=== PATIENT | female | born 1965 | race Caucasian/White ===

== ENCOUNTER 2019-07-03 15:57 | Outpatient (CLI) | payer BC, SELFPAY ==
--- NOTE | 2019-07-07 08:22 | ONC FU_ITS ---
Dr. Torres Patient Follow-Up Note Patient: Raine Rubio Unit #: [id number]: 1965 Dicatated By: Kwasi Torres M.D.Date of Visit:Jul 03, 2019 Onc Med Follow-up/Prog Note Chief Complaint: Breast cancer. History of Present Illness: This is a 54 year-old woman with flor 1 invasive ductal carcinoma of the left breast, stage IA (T1c, N0, M0), ER/TN positive and HER-2/gregorio negative. The tumor was low risk by Oncotype DX, recurrence score 2. She had been undergoing close surveillance for suspicious findings in the left breast on mammogram, first noted in July 2014. Biopsy at that time showed benign pathology. follow-up imaging in July 2015 was felt to be suspicious, but the abnormality was not reproducible at the scheduled ultrasound-guided biopsy in August 2015. Repeat diagnostic mammogram and ultrasound on 02/25/2016 showed a focal asymmetry in the 9:00 position of the left breast, 7 cm from the nipple, measuring 9 mm in size. Needle core biopsy on 03/06/2016 showed invasive ductal carcinoma, Heike grade 2, with 10% intermediate grade ductal carcinoma in situ, cribriform pattern. The breast prognostic profile showed ER positive at 98% and TN positive at 98%. It was negative for overexpression of HER-2/gregorio, 1+ by IHC. The Ki-67 was borderline at 17%. Further evaluation with bilateral breast MRI revealed a second suspicious lesion in the left breast as well as several abnormalities in the right breast. As such, the decision was made to proceed with bilateral mastectomy. On 04/14/2016 she underwent left modified radical mastectomy with sentinel lymph node biopsy and right total mastectomy. Pathology on the left breast showed invasive ductal carcinoma, grade 1, measuring 1.8 cm in greatest dimension. Also noted was a separate lesion of ductal carcinoma in situ, nuclear grade 3, with comedo type necrosis, measuring 1.2 cm in greatest dimension. The margins of resection were negative for dysplasia and tumor. There was no lymphovascular invasion identified. One sentinel axillary lymph node was negative for carcinoma. The right breast showed ductal carcinoma in situ, nuclear grade 2, with cribriform features and comedo type necrosis, measuring 3.3 cm in greatest dimension. There was no invasive carcinoma identified. The margins of resection were negative for tumor. She had further evaluation with Oncotype DX, which showed a recurrence score of 2, low risk category, corresponding to a 10 year risk of distant recurrence of 4% following adjuvant hormonal therapy. I had seen her initially on 05/20/2016. Given her low recurrence score by Oncotype DX, adjuvant chemotherapy was not recommended. I had discussed options for adjuvant hormonal therapy. She had previously undergone hysterectomy and unilateral oophorectomy for benign disease in 2010. She did report having hot flashes for several years, and those had gradually resolved. Her subsequent evaluation included an FSH level of 41.1 mIU/mL, LH 23.8 mIU/mL, and estradiol 22.2 pg/mL, consistent with menopause. Her baseline DEXA scan showed normal bone density with T score of 1.6 in the lumbar spine, 1.9 in the left hip, and 1.9 in the right hip. She began adjuvant hormonal therapy with anastrozole 1 mg daily on 05/25/2016. Her other medical illnesses include hyperlipidemia, type II diabetes, and GERD. She has hypothyroidism following previous radioactive iodine ablation for hyperthyroidism. She has a history of smoking 1/2 pack of cigarettes daily for 15 years. She quit smoking in 2006. NTERIM HISTORY: She had initially tolerated the anastrozole well. However, as of May 2017 it was stopped due to worsening musculoskeletal pain. Her symptoms subsequently improved, and she then began further hormonal therapy with letrozole 2.5 mg daily on 11/26/2017. She stopped treatment as of 12/14/2017 due to recurrence of musculoskeletal pain, the the most significant of which was in the right hip area. X-ray of the right hip and pelvis at that time showed no acute or healing hip or pelvic fractures. There were no destructive lesions identified. As of her followup visit in January 2018 she began further adjuvant hormonal therapy with exemestane 25 mg daily. In the meantime, she also began monthly B12 injections. At her follow-up visit in December 2018, she had developed significant worsening of her musculoskeletal pain, and her exemestane was put on hold. By the following month she was feeling better, and she opted to restart the exemestane as opposed to changing her treatment. She is seen for a follow-up visit. She has not been feeling good. In March she had started Victoza for her diabetes and she has been having significant side effects with it, mainly abdominal pain and severe nausea. As result of that, her energy has been terrible. Recently she has had very little activity. Appetite has been very poor, but her weight has remained stable. She was having fever, that has resolved. She has not had hot flashes or night sweating. She did stop the medication 4 days ago, and since then she has started feeling a little better. She still has her normal sinus drainage and cough. She does not complain of shortness of breath or chest pain. Bowel and bladder function have been okay. She has been having some back pain and she also has had pain in her posterior hip area. She was having headaches and she also has had dizziness. She has no focal neurologic symptoms. Medications: ALPRAZolam 0.5 (0.25 mg) Tablet Oral at bedtime PRN, Glimepiride 1 (2 mg) Tablet Oral daily, MetFORMIN HCl ER 2 (500 mg) Tablet SR 24 HR Oral b.i.d., PriLOSEC OTC 1 (20 mg) Tablet, enteric coated Oral daily PRN, Simvastatin 1 Tablet (of 20 mg) Oral daily, Symbicort 1 (80-4.5 mcg/act) Aerosol Inhalation b.i.d. PRN, Synthroid 1 (112 mcg) Tablet Oral daily, Vitamin B12 1 Injectable Oral Allergies: Hydrocodone-Acetaminophen Review of Systems: Constitutional - She says her energy is terrible. She has very little activity. Her appetite has not been good, but her weight is stable. She was having fever, that has resolved. She is not have hot flashes or night sweating. ECOG score is 2, ENMT - She has allergy related sinus drainage. No mouth sores. No sore throat or difficulty swallowing, Hematologic/Lymphatic - No abnormal bruising or bleeding, Respiratory - No shortness of breath. She has some cough with the sinus drainage. No pleuritic pain or hemoptysis, Cardiovascular - No angina pain. No palpitations, Gastrointestinal - She has been having abdominal pain and severe nausea, but it is getting better. She has occasional acid reflux. No diarrhea or constipation. No blood in the stool or black stools, Genitourinary (F) - No dysuria or hematuria. No urinary frequency. No urgency or incontinence, Musculoskeletal - She has been having back pain, Integumentary - No skin complications, Neurologic - She was having headaches and she has had dizziness. No numbness/paresthesias or other focal neurologic symptoms, Psychiatric - She has some anxiety. No depression. No insomnia. Vital Signs: Performed on Jul 03, 2019 16:06 Height - 66.00 in Weight - 227.2 lbs (LOW) BSA - 2.11 sq.m BMI - 36.67 (HIGH) Temperature - 98.3 F (LOW) Pulse - 90 /min Respiration - 16 /min BP - 125/79 mm(hg) O2 Sat - 98 % Pain - 3 Physical Examination: Constitutional - She still looks good generally, Eyes - Sclerae nonicteric. Conjunctivae clear, ENMT - No lesions noted in the oral cavity, Hematologic/Lymphatic - No cervical, clavicular, or axillary adenopathy, Respiratory - Lungs are clear with good air movement bilaterally, Cardiovascular - Heart rhythm is regular. There is a II/ systolic murmur. There is no gallop or rub noted, Abdomen - Soft. She has mild abdominal tenderness. Liver and spleen are not enlarged. There is no abdominal mass or ascites noted and there is no inguinal adenopathy, Extremities - No edema, Neurologic - No focal neurologic deficits noted. Lab/Imaging: Her laboratory studies from an ER visit on 06/22/2019 included CBC showing hemoglobin 16.6 g, white blood cell count 16,000, and platelet count 308,000. Comprehensive metabolic profile was unremarkable. Impression: 1. Patient with flor 1 invasive ductal carcinoma of the left breast, stage IA (T1c, N0, M0), ER/TN positive and HER-2/gregorio negative. The tumor was low risk by Oncotype DX, recurrence score 2. 2. She also had bilateral ductal carcinoma in situ, grade 3 on the left and grade 2 on the right. 3. She underwent left modified radical mastectomy with axillary sentinel lymph node biopsy and right total mastectomy on 04/14/2016. 4. Her laboratory studies were consistent with menopausal status. Her other medical illnesses include: 5. Hyperlipidemia. 6. Type II diabetes. 7. She has history of hyperthyroidism for which she underwent treatment with radioactive iodine ablation. 8. She is being followed for thyroid nodules. 9. She has persistent cough. This may be due to asthma. 10. She has mild psoriasis. 11. She has history of alopecia. Adjuvant hormonal therapy with anastrozole 1 mg daily began on 05/25/2016. Initiall she had been tolerating it well. She was noted to have a mildly elevated alkaline phosphatase level, presumed to be related to her underlying diabetes. However, as of May 2017 the anastrozole was put on hold due to worsening musculoskeletal pain. Her symptoms subsequently improved, and she then began further hormonal therapy with letrozole 2.5 mg daily on 11/26/2017. It was stopped as of 12/14/2017, again because of musculoskeletal pain, mainly in the right hip. X-rays of the right hip and pelvis showed no acute findings. During followup she had complete resolution of the musculoskeletal pain and other symptoms. In January 2018 she began further adjuvant hormonal therapy with exemestane 25 mg daily. Initially she had tolerated without adverse effects. However, as of her follow-up visit in December the exemestane was put on hold due to significant worsening of her joint pain. The symptoms had subsequently improved, and in January we opted to restart the medication as opposed to changing her treatment. Initially she was tolerating it pretty well. In March she started Victoza for her diabetes. It apparently has been effective and controlling her blood sugars, but she has been having significant side effects, mainly abdominal pain and severe nausea. She stopped taking it 4 days ago, and since then she has started feeling a little better. However, in addition to the GI symptoms, she also has been having more bone pain again, and at least some component of her symptoms may be related to the exemestane. Plan: I am going to have her put the exemestane on hold again. She will be scheduled for a follow-up visit in 1 month. If she is feeling a lot better, I will probably just have her try taking it again at least one more time. Ultimately, if she is not able to tolerate it, her treatment can be transitioned to tamoxifen. Signed By: Kwasi Torres M.D. <<Signature on File>>
== END 2019-07-03 15:58 | disposition home or self-care (01) ==
PROVIDERS: Family Provider Family Medicine; PCP Internal Medicine Medical Oncology; Visit Provider Internal Medicine Medical Oncology
DX: C50.812 Malignant neoplasm of overlapping sites of left female breast (principal); Z90.13 Acquired absence of bilateral breasts and nipples; Z17.0 Estrogen receptor positive status [ER+]; E78.5 Hyperlipidemia, unspecified; E11.9 Type 2 diabetes mellitus without complications; K21.9 Gastro-esophageal reflux disease without esophagitis; E89.0 Postprocedural hypothyroidism; Y84.2 Radiological procedure and radiotherapy as the cause of abnormal reaction of the patient, or of later complication, without mention of misadventure at the time of the procedure; Y78.1 Therapeutic (nonsurgical) and rehabilitative radiological devices associated with adverse incidents; L40.9 Psoriasis, unspecified; Z78.0 Asymptomatic menopausal state; Z79.811 Long term (current) use of aromatase inhibitors; Z79.84 Long term (current) use of oral hypoglycemic drugs; Z87.891 Personal history of nicotine dependence
CPT/HCPCS: 99214

== ENCOUNTER 2020-01-23 11:37 | Outpatient (CLI) | payer BC, SELFPAY ==
[2020-01-23 12:27] LABS: Basophils # 0.1 10^3/uL (0.0-0.1); Basophils % 0.7 %; Eosinophils # 0.4 10^3/uL (0.0-0.8); Eosinophils % 6.1 %; Hematocrit 43.9 % (37.0-47.0); Hemoglobin 14.6 g/dL (11.5-15.3); Lymphocytes # 3.3 10^3/uL (0.8-4.8); Lymphocytes % 47.8 %; Mean Corpuscular HGB Conc 33.3 g/dL (30.0-36.0); Mean Corpuscular Hemoglobin 29.8 pg (28.0-34.0); Mean Corpuscular Volume 89.6 fL (81-99); Monocytes # 0.4 10^3/uL (0.2-0.9); Monocytes % 5.6 %; Neutrophils # 2.74 10^3/uL (1.8-7.7); Neutrophils % 39.5 %; Nucleated Red Blood Cells % 0 %; Platelet Count 252 10^3/cmm (130-400); Red Cell Distribution Width 11.8 % (12.1-15.1); White Blood Count 6.9 10^3/uL (4.0-10.0)
[2020-01-23 12:48] LABS: Alanine Aminotransferase 30 U/L (0-33); Albumin Level 4.2 g/dL (3.5-5.2); Alkaline Phosphatase 91 IU/L (35-105); Aspartate Amino Transferase 26 U/L (0-32); Blood Urea Nitrogen 7 mg/dL (6-20); Calcium 8.7 mg/dL (8.5-10.5); Carbon Dioxide 26 mmol/L (22-29); Chloride 100 mmol/L (98-107); Globulin 2.8 g/dL (1.3-4.6); Glomerular Filtration Rate 87.5 mL/min (90-130); Glucose 194 mg/dL (65-115); Osmolality Calculated 281 mOsm/kg (285-295); Sodium 135 mmol/L (136-145); Total Bilirubin 0.6 mg/dL (0.15-1.2)
--- NOTE | 2020-01-27 12:29 | ONC FU_ITS ---
Dr. Torres Patient Follow-Up Note Patient: Raine Rubio Unit #: [id number]: 1965 Dicatated By: Kwasi Torres M.D.Date of Visit:Jan 23, 2020 Onc Med Follow-up/Prog Note Chief Complaint: Breast cancer. History of Present Illness: This is a 54 year-old woman with flor 1 invasive ductal carcinoma of the left breast, stage IA (T1c, N0, M0), ER/RI positive and HER-2/gregorio negative. The tumor was low risk by Oncotype DX, recurrence score 2. She had been undergoing close surveillance for suspicious findings in the left breast on mammogram, first noted in July 2014. Biopsy at that time showed benign pathology. follow-up imaging in July 2015 was felt to be suspicious, but the abnormality was not reproducible at the scheduled ultrasound-guided biopsy in August 2015. Repeat diagnostic mammogram and ultrasound on 02/25/2016 showed a focal asymmetry in the 9:00 position of the left breast, 7 cm from the nipple, measuring 9 mm in size. Needle core biopsy on 03/06/2016 showed invasive ductal carcinoma, Heike grade 2, with 10% intermediate grade ductal carcinoma in situ, cribriform pattern. The breast prognostic profile showed ER positive at 98% and RI positive at 98%. It was negative for overexpression of HER-2/gregorio, 1+ by IHC. The Ki-67 was borderline at 17%. Further evaluation with bilateral breast MRI revealed a second suspicious lesion in the left breast as well as several abnormalities in the right breast. As such, the decision was made to proceed with bilateral mastectomy. On 04/14/2016 she underwent left modified radical mastectomy with sentinel lymph node biopsy and right total mastectomy. Pathology on the left breast showed invasive ductal carcinoma, grade 1, measuring 1.8 cm in greatest dimension. Also noted was a separate lesion of ductal carcinoma in situ, nuclear grade 3, with comedo type necrosis, measuring 1.2 cm in greatest dimension. The margins of resection were negative for dysplasia and tumor. There was no lymphovascular invasion identified. One sentinel axillary lymph node was negative for carcinoma. The right breast showed ductal carcinoma in situ, nuclear grade 2, with cribriform features and comedo type necrosis, measuring 3.3 cm in greatest dimension. There was no invasive carcinoma identified. The margins of resection were negative for tumor. She had further evaluation with Oncotype DX, which showed a recurrence score of 2, low risk category, corresponding to a 10 year risk of distant recurrence of 4% following adjuvant hormonal therapy. I had seen her initially on 05/20/2016. Given her low recurrence score by Oncotype DX, adjuvant chemotherapy was not recommended. I had discussed options for adjuvant hormonal therapy. She had previously undergone hysterectomy and unilateral oophorectomy for benign disease in 2010. She did report having hot flashes for several years, and those had gradually resolved. Her subsequent evaluation included an FSH level of 41.1 mIU/mL, LH 23.8 mIU/mL, and estradiol 22.2 pg/mL, consistent with menopause. Her baseline DEXA scan showed normal bone density with T score of 1.6 in the lumbar spine, 1.9 in the left hip, and 1.9 in the right hip. She began adjuvant hormonal therapy with anastrozole 1 mg daily on 05/25/2016. Her other medical illnesses include hyperlipidemia, type II diabetes, and GERD. She has hypothyroidism following previous radioactive iodine ablation for hyperthyroidism. She has a history of smoking 1/2 pack of cigarettes daily for 15 years. She quit smoking in 2006. NTERIM HISTORY: She had initially tolerated the anastrozole well. However, as of May 2017 it was stopped due to worsening musculoskeletal pain. Her symptoms subsequently improved, and she then began further hormonal therapy with letrozole 2.5 mg daily on 11/26/2017. She stopped treatment as of 12/14/2017 due to recurrence of musculoskeletal pain, the the most significant of which was in the right hip area. X-ray of the right hip and pelvis at that time showed no acute or healing hip or pelvic fractures. There were no destructive lesions identified. As of her followup visit in January 2018 she began further adjuvant hormonal therapy with exemestane 25 mg daily. In the meantime, she also began monthly B12 injections. At her follow-up visit in December 2018, she had developed significant worsening of her musculoskeletal pain, and her exemestane was put on hold. By the following month she was feeling better, and she opted to restart the exemestane as opposed to changing her treatment. As of June 2019 the exemestane was again put on hold, she was having a variety of new complaints. However, it was restarted by the next month. She is seen for a follow-up visit. Thus far she has been able to tolerate the exemestane with acceptable side effects. Recently she has been having pain in her right arm, from the wrist to the elbow, and she also has some swelling with it. She has not been having any other significant joint or bone pain. Her energy is quite variable. At times she bottoms out. She is doing light work. Her ECOG score is 1. Her appetite is also variable. Her weight is up a couple of pounds. She has not had fever. She has normal hot flashes. She has a little bit of shortness of breath. Overall her breathing is pretty good. She does complain of constant cough. She has not been having chest pain. She had nausea says vomiting and diarrhea last week, attributable to a bug . Bowels have otherwise been okay, though she sometimes has urgency with defecation. She has no complaints. She has no focal neurologic symptoms. She has been having a lot of stress/anxiety, particularly in regards to concerns about going back to work in the midst of the coronavirus pandemic. Medications: ALPRAZolam 0.5 (0.25 mg) Tablet Oral at bedtime PRN, Glimepiride 1 (2 mg) Tablet Oral daily, MetFORMIN HCl ER 2 (500 mg) Tablet SR 24 HR Oral b.i.d., PriLOSEC OTC 1 (20 mg) Tablet, enteric coated Oral daily PRN, Simvastatin 1 Tablet (of 20 mg) Oral daily, Symbicort 1 (80-4.5 mcg/act) Aerosol Inhalation b.i.d. PRN, Synthroid 1 (137 mcg) Tablet Oral daily, Trulicity 1 (0.75 mg/0.5mL) Subcutaneous q 7 days, Vitamin B12 1 Injectable Oral Allergies: Hydrocodone-Acetaminophen Review of Systems: Constitutional - Her energy varies. Some days she bottoms out . Appetite also is variable. Weight is up a couple of pounds. She has not had fever. She has normal hot flashes. ECOG score is 1, ENMT - She has sinus drainage. No mouth sores. No sore throat or difficulty swallowing, Hematologic/Lymphatic - No abnormal bruising or bleeding, Respiratory - She has some shortness of breath, but her breathing is pretty good. She has a constant cough. No pleuritic pain or hemoptysis, Cardiovascular - No angina pain. No palpitations, Gastrointestinal - Last week she had nausea/vomiting and diarrhea, presumed to be a bug . Her bowels are otherwise okay, though she sometimes has urgency with defecation. No blood in the stool or black stools, Genitourinary (F) - No dysuria or hematuria. No urinary frequency. No urgency or incontinence, Musculoskeletal - She has been having pain in her right arm, from the wrist and up to the elbow, and she has some associated swelling in the arm. She has no other joint or bone pain, Integumentary - No skin rash, Neurologic - No headache. She does have some dizziness. No numbness or tingling. No other focal neurologic symptoms, Psychiatric - She has anxiety and depression. She has difficulty sleeping. Vital Signs: Performed on Jan 23, 2020 12:58 Height - 66.00 in Weight - 230.8 lbs (HIGH) BSA - 2.13 sq.m BMI - 37.25 (HIGH) Temperature - 97.3 F (LOW) Pulse - 103 /min (HIGH) Respiration - 18 /min BP - 123/81 mm(hg) O2 Sat - 100 % Pain - 4 Physical Examination: Constitutional - She looks good generally, Eyes - Sclerae nonicteric. Conjunctivae clear, ENMT - No lesions noted in the oral cavity, Hematologic/Lymphatic - No cervical or clavicular adenopathy, Respiratory - Lungs are clear with good air movement bilaterally, Cardiovascular - Heart rhythm is regular. There is a I/ systolic murmur. There is no gallop or rub noted, Breasts - There are no chest wall lesions noted. There is no axillary adenopathy, Abdomen - Soft. Liver and spleen are not enlarged. There is no abdominal mass or ascites noted and there is no inguinal adenopathy, Extremities - No lower extremity edema. There is focal tenderness in the area of the right elbow, and there is slight swelling in the right forearm, Neurologic - No focal neurologic deficits noted. Lab/Imaging: Test performed on Jan 23, 2020 11:57 Sodium 135 mmol/L Potassium 4.0 mmol/L Chloride 100 mmol/L CO2 26 mmol/L Anion Gap 13.0 BUN 7 mg/dL Creatinine 0.7 mg/dL Cr Clearance (Est) 153.61 mL/min eGFR 87.5 mL/min Glucose 194 mg/dL Calcium 8.7 mg/dL Protein, Total 7.0 g/dL Albumin 4.2 g/dL Globulin 2.8 g/dL Bilirubin, Total 0.6 mg/dL ALT (SGPT) 30 U/L AST (SGOT) 26 U/L Alkaline Phosphatase 91 IU/L WBC 6.9 10 3/uL RBC 4.90 10 6/uL HGB 14.6 g/dL HCT 43.9 % MCV 89.6 fL MCH 29.8 pg MCHC 33.3 g/dL RDW 11.8 % Platelet Count 252 10 3/cmm MPV 11.0 fL Neutrophils 2.74 10 3/uL Lymphocytes 3.3 10 3/uL Monocytes 0.4 10 3/uL Eosinophils 0.4 10 3/uL Basophils 0.1 10 3/uL Neutrophil % 39.5 % Lymphocyte % 47.8 % Monocyte % 5.6 % Eosinophil % 6.1 % Basophils % 0.7 % NRBC % 0 % Impression: 1. Patient with flor 1 invasive ductal carcinoma of the left breast, stage IA (T1c, N0, M0), ER/RI positive and HER-2/gregorio negative. The tumor was low risk by Oncotype DX, recurrence score 2. 2. She also had bilateral ductal carcinoma in situ, grade 3 on the left and grade 2 on the right. 3. She underwent left modified radical mastectomy with axillary sentinel lymph node biopsy and right total mastectomy on 04/14/2016. 4. Her laboratory studies were consistent with menopausal status. Her other medical illnesses include: 5. Hyperlipidemia. 6. Type II diabetes. 7. She has history of hyperthyroidism for which she underwent treatment with radioactive iodine ablation. 8. She is being followed for thyroid nodules. 9. She has persistent cough. This may be due to asthma. 10. She has mild psoriasis. 11. She has history of alopecia. Adjuvant hormonal therapy with anastrozole 1 mg daily began on 05/25/2016. Initiall she had been tolerating it well. She was noted to have a mildly elevated alkaline phosphatase level, presumed to be related to her underlying diabetes. However, as of May 2017 the anastrozole was put on hold due to worsening musculoskeletal pain. Her symptoms subsequently improved, and she then began further hormonal therapy with letrozole 2.5 mg daily on 11/26/2017. It was stopped as of 12/14/2017, again because of musculoskeletal pain, mainly in the right hip. X-rays of the right hip and pelvis showed no acute findings. During followup she had complete resolution of the musculoskeletal pain and other symptoms. In January 2018 she began further adjuvant hormonal therapy with exemestane 25 mg daily. Initially she had tolerated without adverse effects. However, as of her follow-up visit in December the exemestane was put on hold due to significant worsening of her joint pain. The symptoms had subsequently improved, and in January she opted to restart the medication as opposed to changing her treatment. As of June 2019 the exemestane was again put on hold, but just temporarily. She has since then been able to continue it with acceptable toxicity. She does have episodes of severe fatigue and recently she has developed significant pain in her right arm, from the wrist to the elbow. The exact cause is uncertain. However, it would be an unlikely site for metastatic involvement. Plan: She continues adjuvant hormonal therapy with exemestane 25 mg daily. She will be given a prescription for venlafaxine 75 mg daily for anxiety and for hot flashes. I also will have her try meloxicam 15 mg daily for 14 days. If her arm pain improves she can then just use Voltaren gel topically as needed. She is to let me know if it is not getting better. Otherwise I will just see her again in 6 months. Signed By: wKasi Torres M.D. <<Signature on File>>
== END 2020-01-23 11:38 | disposition home or self-care (01) ==
LOC: ONCMED 11:37
PROVIDERS: Visit Provider Internal Medicine Medical Oncology
DX: C50.812 Malignant neoplasm of overlapping sites of left female breast (principal); F41.9 Anxiety disorder, unspecified; M79.631 Pain in right forearm; Z17.0 Estrogen receptor positive status [ER+]; Z86.000 Personal history of in-situ neoplasm of breast; E78.5 Hyperlipidemia, unspecified; E11.9 Type 2 diabetes mellitus without complications; E04.2 Nontoxic multinodular goiter; R05 Cough; L40.9 Psoriasis, unspecified; L65.9 Nonscarring hair loss, unspecified; Z90.13 Acquired absence of bilateral breasts and nipples; Z79.811 Long term (current) use of aromatase inhibitors; Z79.899 Other long term (current) drug therapy
CPT/HCPCS: 36415; 80053; 85025; 99214

== ENCOUNTER 2020-07-25 13:21 | Outpatient (CLI) | payer BC, SELFPAY ==
--- NOTE | 2020-07-27 11:10 | ONC FU_ITS ---
Dr. Torres Patient Follow-Up Note Patient: Raine Rubio Unit #: [id number]: 1965 Dicatated By: Kwasi Torres M.D.Date of Visit:Jul 25, 2020 Onc Med Follow-up/Prog Note Chief Complaint: Breast cancer. History of Present Illness: This is a 55 year-old woman with jamar 1 invasive ductal carcinoma of the left breast, stage IA (T1c, N0, M0), ER/CO positive and HER-2/gregorio negative. The tumor was low risk by Oncotype DX, recurrence score 2. She had been undergoing close surveillance for suspicious findings in the left breast on mammogram, first noted in July 2014. Biopsy at that time showed benign pathology. Follow-up imaging in July 2015 was felt to be suspicious, but the abnormality was not reproducible at the scheduled ultrasound-guided biopsy in August 2015. Repeat diagnostic mammogram and ultrasound on 02/25/2016 showed a focal asymmetry in the 9:00 position of the left breast, 7 cm from the nipple, measuring 9 mm in size. Needle core biopsy on 03/06/2016 showed invasive ductal carcinoma, Heike grade 2, with 10% intermediate grade ductal carcinoma in situ, cribriform pattern. The breast prognostic profile showed ER positive at 98% and CO positive at 98%. It was negative for overexpression of HER-2/gregorio, 1+ by IHC. The Ki-67 was borderline at 17%. Further evaluation with bilateral breast MRI revealed a second suspicious lesion in the left breast as well as several abnormalities in the right breast. As such, the decision was made to proceed with bilateral mastectomy. On 04/14/2016 she underwent left total mastectomy with sentinel lymph node biopsy and right total mastectomy. Pathology on the left breast showed invasive ductal carcinoma, grade 1, measuring 1.8 cm in greatest dimension. Also noted was a separate lesion of ductal carcinoma in situ, nuclear grade 3, with comedo type necrosis, measuring 1.2 cm in greatest dimension. The margins of resection were negative for dysplasia and tumor. There was no lymphovascular invasion identified. One axillary sentinel lymph node was negative for carcinoma. The right breast showed ductal carcinoma in situ, nuclear grade 2, with cribriform features and comedo type necrosis, measuring 3.3 cm in greatest dimension. There was no invasive carcinoma identified. The margins of resection were negative for tumor. She had further evaluation with Oncotype DX, which showed a recurrence score of 2, low risk category, corresponding to a 10 year risk of distant recurrence of 4% following adjuvant hormonal therapy. I had seen her initially on 05/20/2016. Given her low recurrence score by Oncotype DX, adjuvant chemotherapy was not recommended. I had discussed options for adjuvant hormonal therapy. She had previously undergone hysterectomy and unilateral oophorectomy for benign disease in 2010. She did report having hot flashes for several years, and those had gradually resolved. Her subsequent evaluation included an FSH level of 41.1 mIU/mL, LH 23.8 mIU/mL, and estradiol 22.2 pg/mL, consistent with menopause. Her baseline DEXA scan showed normal bone density with T score of 1.6 in the lumbar spine, 1.9 in the left hip, and 1.9 in the right hip. She began adjuvant hormonal therapy with anastrozole 1 mg daily on 05/25/2016. She had initially tolerated the anastrozole well. However, as of May 2017 it was stopped due to worsening musculoskeletal pain. Her symptoms subsequently improved, and she then began further hormonal therapy with letrozole 2.5 mg daily on 11/26/2017. She stopped treatment as of 12/14/2017 due to recurrence of musculoskeletal pain, the the most significant of which was in the right hip area. X-ray of the right hip and pelvis at that time showed no acute or healing hip or pelvic fractures. There were no destructive lesions identified. As of her followup visit in January 2018 she began further adjuvant hormonal therapy with exemestane 25 mg daily. In the meantime, she also began monthly B12 injections. At her follow-up visit in December 2018, she had developed significant worsening of her musculoskeletal pain, and her exemestane was put on hold. By the following month she was feeling better, and she opted to restart the exemestane as opposed to changing her treatment. As of June 2019 the exemestane was again put on hold, she was having a variety of new complaints. However, it was restarted by the next month, and during subsequent follow-up she was able to tolerate the exemestane with acceptable toxicity. Her other medical illnesses include hyperlipidemia, type II diabetes, and GERD. She has hypothyroidism following previous radioactive iodine ablation for hyperthyroidism. She has a history of smoking 1/2 pack of cigarettes daily for 15 years. She quit smoking in 2006. INTERIM HISTORY: She is seen for a follow-up visit. She has been feeling good generally. Her energy has improved with her B12 injections administered every 2 weeks. She has normal activity. ECOG score is 0. Appetite is somewhat variable. Her weight is down a few pounds. She does not have fever or night sweats. She does have some hot flashes. She has sinus drainage and sometimes sore throat. She has chronic cough. She does not complain of shortness of breath or chest pain. She has acid reflux, but it is adequately managed with Tums. She sometimes has loose stools and her bowel movements are sometimes urgent. Bladder function is pretty good, though she does have some mild stress incontinence. She currently is not having any significant joint or bone pain. She occasionally wakes up with a bad headache. She has no focal neurologic symptoms. Her anxiety/depression has improved significantly with Wellbutrin. Medications: ALPRAZolam 0.5 (0.25 mg) Tablet Oral at bedtime PRN, Glimepiride 1 (2 mg) Tablet Oral daily, MetFORMIN HCl ER 2 (500 mg) Tablet SR 24 HR Oral b.i.d., PriLOSEC OTC 1 (20 mg) Tablet, enteric coated Oral daily PRN, Simvastatin 1 Tablet (of 20 mg) Oral daily, Symbicort 1 (80-4.5 mcg/act) Aerosol Inhalation b.i.d. PRN, Synthroid 1 (137 mcg) Tablet Oral daily, Trulicity 1 (0.75 mg/0.5mL) Subcutaneous q 7 days, Vitamin B12 1 Injectable Oral Allergies: Hydrocodone-Acetaminophen Vital Signs: Performed on Jul 25, 2020 13:36 Height - 66.00 in Weight - 226.2 lbs (LOW) BSA - 2.11 sq.m BMI - 36.51 (HIGH) Temperature - 99 F (HIGH) Pulse - 98 /min Respiration - 16 /min BP - 129/79 mm(hg) O2 Sat - 99 % Pain - 0 Physical Examination: Constitutional - She looks good generally, Eyes - Sclerae nonicteric. Conjunctivae clear, ENMT - No lesions noted in the oral cavity, Hematologic/Lymphatic - No cervical, clavicular, or axillary adenopathy, Respiratory - Lungs are clear with good air movement bilaterally, Cardiovascular - Heart rhythm is regular. There is no murmur, gallop, or rub noted, Abdomen - Soft. Liver and spleen are not enlarged. There is no abdominal mass or ascites noted and there is no inguinal adenopathy, Extremities - No edema, Neurologic - No focal neurologic deficits noted. Problem List: 1. Jamar 1 invasive ductal carcinoma of the left breast, stage IA (T1c, N0, M0), ER/CO positive and HER-2/gregorio negative. The tumor was low risk by Oncotype DX, recurrence score 2. She also had bilateral ductal carcinoma in situ, grade 3 on the left and grade 2 on the right. 2. Hyperlipidemia. 3. Type II diabetes. 4. She has history of hyperthyroidism for which she underwent treatment with radioactive iodine ablation. 5. She has been followed for thyroid nodules. 6. She has mild psoriasis. 7. She has history of alopecia. 8. B12 deficiency. 9. Anxiety/depression. Problems Addressed with this Encounter and Plan: Jamar 1 invasive ductal carcinoma of the left breast, stage IA (T1c, N0, M0), ER/CO positive and HER-2/gregorio negative. The tumor was low risk by Oncotype DX, recurrence score 2. She also had bilateral ductal carcinoma in situ, grade 3 on the left and grade 2 on the right. She underwent left total mastectomy with axillary sentinel lymph node biopsy and right total mastectomy on 04/14/2016. With low risk Oncotype, adjuvant chemotherapy was not recommended. She began adjuvant hormonal therapy with anastrozole 1 mg daily in May 2016. Her laboratory studies were consistent with menopausal status. As of May 2017 the anastrozole was put on hold due to worsening musculoskeletal pain. Her symptoms subsequently improved, and she then began further hormonal therapy with letrozole 2.5 mg daily on 11/26/2017. It was stopped within a few weeks because of musculoskeletal pain. In January 2018 she began further adjuvant hormonal therapy with exemestane 25 mg daily. During subsequent follow-up the exemestane was put on hold a couple of different times due to increased joint pain, but just temporarily. Overall, she has been able to continue it with acceptable toxicity. At this point she appears to be doing well clinically. She currently is not having any significant joint or bone pain, and her anxiety/depression has improved significantly with bupropion. She continues adjuvant hormonal therapy with exemestane 25 mg daily. Her other medications remain the same. I will plan to see her again in May, or sooner as needed. Signed By: Kwasi Torres M.D. <<Signature on File>>
== END 2020-07-25 13:22 | disposition home or self-care (01) ==
LOC: ONCMED 13:23
PROVIDERS: Visit Provider Internal Medicine Medical Oncology
DX: C50.812 Malignant neoplasm of overlapping sites of left female breast (principal); Z17.0 Estrogen receptor positive status [ER+]; E78.5 Hyperlipidemia, unspecified; E11.9 Type 2 diabetes mellitus without complications; E03.9 Hypothyroidism, unspecified; E04.1 Nontoxic single thyroid nodule; L40.9 Psoriasis, unspecified; L65.9 Nonscarring hair loss, unspecified; D51.9 Vitamin B12 deficiency anemia, unspecified; F41.9 Anxiety disorder, unspecified; F32.9 Major depressive disorder, single episode, unspecified; Z79.811 Long term (current) use of aromatase inhibitors
CPT/HCPCS: 99214

== ENCOUNTER → 2020-10-02 09:02 | Outpatient (BNVA) | payer SELFPAY | PROVIDERS: Visit Provider Nurse Practitioner Family | DX: E03.9 Hypothyroidism, unspecified (principal); E11.65 Type 2 diabetes mellitus with hyperglycemia; E55.9 Vitamin D deficiency, unspecified | CPT/HCPCS: 80053; 80061; 82306; 83036; 84439; 84443 ==

== ENCOUNTER 2021-03-04 16:02 | Outpatient (CLI) | payer OTHER, SELFPAY ==
--- NOTE | 2021-03-04 16:40 | MR_ITS ---
WS: [id number] MRI RIGHT SHOULDER HISTORY: M25.511 - Pain in right shoulder, prior fall. COMPARISON: None available. TECHNIQUE: Multiplanar sequences of the shoulder joint are submitted. Mild AC joint narrowing. Hypertrophic osteophytes from the distal clavicle and adjacent acromion. The re is soft tissue thickening and osteophyte encroachment upon the supraspinatus tendon and muscle. In creased fluid along the AC ligament. A very small amount of fluid in the subdeltoid bursa. No os acro mion. Biceps tendon remains normally positioned in the bicipital groove. 3 mm insertion site tear of the supraspinatus tendon. There is a additional very superficial tear imelda ng the articular surface of the supraspinatus tendon measuring 5 mm. Mild tendinopathy in the distal supraspinatus tendon also. The remaining tendons are negative for tears. No muscle atrophy or edema. No labral tears are identified. No marrow edema. Very minimal narrowing of the glenohumeral joint. MR/MR shoulder RT wo con* [id number] IMPRESSION: 1. Very small insertion site tear of the supraspinatus tendon. Additional deepti cular surface tear of the distal tendon measures 5 mm. 2. No muscle atrophy or edema. 3. Mild AC joint osteoarthritis. Mild encroachment upon the supraspinatus musc le and tendon by an osteophyte from the distal clavicle.
== END 2021-03-04 16:03 | disposition home or self-care (01) ==
LOC: RADSHAW 16:06
PROVIDERS: PCP Nurse Practitioner Family; Visit Provider Nurse Practitioner Family
DX: M25.511 Pain in right shoulder (principal); M19.011 Primary osteoarthritis, right shoulder
CPT/HCPCS: 73221

== ENCOUNTER 2021-06-02 14:49 | Outpatient (CLI) | payer BC, SELFPAY ==
--- NOTE | 2021-06-06 15:24 | ONC FU_ITS ---
Dr. Torres Patient Follow-Up Note Patient: Raine Rubio Unit #: [id number]: 1965 Dicatated By: Kwasi Torres M.D.Date of Visit:Jun 02, 2021 Onc Med Follow-up/Prog Note Chief Complaint: Breast cancer. History of Present Illness: This is a 56 year-old woman with jamar 1 invasive ductal carcinoma of the left breast, stage IA (T1c, N0, M0), ER/MD positive and HER-2/gregorio negative. The tumor was low risk by Oncotype DX, recurrence score 2. She had been undergoing close surveillance for suspicious findings in the left breast on mammogram, first noted in July 2014. Biopsy at that time showed benign pathology. Follow-up imaging in July 2015 was felt to be suspicious, but the abnormality was not reproducible at the scheduled ultrasound-guided biopsy in August 2015. Repeat diagnostic mammogram and ultrasound on 02/25/2016 showed a focal asymmetry in the 9:00 position of the left breast, 7 cm from the nipple, measuring 9 mm in size. Needle core biopsy on 03/06/2016 showed invasive ductal carcinoma, Heike grade 2, with 10% intermediate grade ductal carcinoma in situ, cribriform pattern. The breast prognostic profile showed ER positive at 98% and MD positive at 98%. It was negative for overexpression of HER-2/gregorio, 1+ by IHC. The Ki-67 was borderline at 17%. Further evaluation with bilateral breast MRI revealed a second suspicious lesion in the left breast as well as several abnormalities in the right breast. As such, the decision was made to proceed with bilateral mastectomy. On 04/14/2016 she underwent left total mastectomy with sentinel lymph node biopsy and right total mastectomy. Pathology on the left breast showed invasive ductal carcinoma, grade 1, measuring 1.8 cm in greatest dimension. Also noted was a separate lesion of ductal carcinoma in situ, nuclear grade 3, with comedo type necrosis, measuring 1.2 cm in greatest dimension. The margins of resection were negative for dysplasia and tumor. There was no lymphovascular invasion identified. One axillary sentinel lymph node was negative for carcinoma. The right breast showed ductal carcinoma in situ, nuclear grade 2, with cribriform features and comedo type necrosis, measuring 3.3 cm in greatest dimension. There was no invasive carcinoma identified. The margins of resection were negative for tumor. She had further evaluation with Oncotype DX, which showed a recurrence score of 2, low risk category, corresponding to a 10 year risk of distant recurrence of 4% following adjuvant hormonal therapy. I had seen her initially on 05/20/2016. Given her low recurrence score by Oncotype DX, adjuvant chemotherapy was not recommended. I had discussed options for adjuvant hormonal therapy. She had previously undergone hysterectomy and unilateral oophorectomy for benign disease in 2010. She did report having hot flashes for several years, and those had gradually resolved. Her subsequent evaluation included an FSH level of 41.1 mIU/mL, LH 23.8 mIU/mL, and estradiol 22.2 pg/mL, consistent with menopause. Her baseline DEXA scan showed normal bone density with T score of 1.6 in the lumbar spine, 1.9 in the left hip, and 1.9 in the right hip. She began adjuvant hormonal therapy with anastrozole 1 mg daily on 05/25/2016. She had initially tolerated the anastrozole well. However, as of May 2017 it was stopped due to worsening musculoskeletal pain. Her symptoms subsequently improved, and she then began further hormonal therapy with letrozole 2.5 mg daily on 11/26/2017. She stopped treatment as of 12/14/2017 due to recurrence of musculoskeletal pain, the the most significant of which was in the right hip area. X-ray of the right hip and pelvis at that time showed no acute or healing hip or pelvic fractures. There were no destructive lesions identified. As of her followup visit in January 2018 she began further adjuvant hormonal therapy with exemestane 25 mg daily. In the meantime, she also began monthly B12 injections. At her follow-up visit in December 2018, she had developed significant worsening of her musculoskeletal pain, and her exemestane was put on hold. By the following month she was feeling better, and she opted to restart the exemestane as opposed to changing her treatment. As of June 2019 the exemestane was again put on hold, she was having a variety of new complaints. However, it was restarted by the next month, and during subsequent follow-up she was able to tolerate the exemestane with acceptable toxicity. Her other medical illnesses include hyperlipidemia, type II diabetes, and GERD. She has hypothyroidism following previous radioactive iodine ablation for hyperthyroidism. She has a history of smoking 1/2 pack of cigarettes daily for 15 years. She quit smoking in 2006. INTERIM HISTORY: She is seen for a follow-up visit. She has been feeling pretty good generally. Her main complaint is that she had injured her right shoulder back in September as result of a fall while she was at school. Her right shoulder MRI on 03/04/2021 showed only a very small insertion site tear of the supraspinatus tendon and mild AC joint osteoarthritis. She still has some pain and limited range of motion in the right shoulder and she also still has some numbness in her right hand, though she says it has been getting better gradually. Her energy has been okay, and she still has normal activity. ECOG score is zero. She has good appetite. She has no fever, night sweats, or hot flashes. She reports having constant nasal drainage and cough. She does not complain of shortness of breath or chest pain. Her acid reflux is adequately managed with Prilosec. She has no other GI or complaints. She has no other joint or bone pain. She does not complain of headache. She does have some dizziness at times. She has no other focal neurologic symptoms. Medications: ALPRAZolam 0.5 (0.25 mg) Tablet Oral at bedtime PRN, Glimepiride 1 (2 mg) Tablet Oral daily, MetFORMIN HCl ER 2 (500 mg) Tablet SR 24 HR Oral b.i.d., PriLOSEC OTC 1 (20 mg) Tablet, enteric coated Oral daily PRN, Simvastatin 1 Tablet (of 20 mg) Oral daily, Symbicort 1 (80-4.5 mcg/act) Aerosol Inhalation b.i.d. PRN, Synthroid 1 (137 mcg) Tablet Oral daily, Vitamin B12 1 Injectable Oral Allergies: Hydrocodone-Acetaminophen Vital Signs: Performed on Jun 02, 2021 16:08 Height - 66.00 in Weight - 223.6 lbs (LOW) BSA - 2.10 sq.m BMI - 36.09 (HIGH) Temperature - 98.6 F Pulse - 74 /min Respiration - 18 /min BP - 130/81 mm(hg) O2 Sat - 96 % Pain - 0 Fatigue - 6 Physical Examination: Constitutional - She looks good generally, Eyes - Sclerae nonicteric. Conjunctivae clear, ENMT - No lesions noted in the oral cavity, Hematologic/Lymphatic - No cervical or clavicular adenopathy, Respiratory - Lungs are clear with good air movement bilaterally, Cardiovascular - Heart rhythm is regular. There is no murmur, gallop, or rub noted, Breasts - There are no lesions noted in the chest wall bilaterally. There is no axillary adenopathy noted, Abdomen - Soft. Liver and spleen are not enlarged. There is no abdominal mass or ascites noted and there is no inguinal adenopathy, Extremities - Mild lower extremity edema. There is limited range of motion at the right shoulder joint. There is mild tenderness in the bicipital groove and in the soft tissue around the right shoulder, Neurologic - No focal neurologic deficits noted. Problem List: 1. Jamar 1 invasive ductal carcinoma of the left breast, stage IA (T1c, N0, M0), ER/MD positive and HER-2/gregorio negative. The tumor was low risk by Oncotype DX, recurrence score 2. She also had bilateral ductal carcinoma in situ, grade 3 on the left and grade 2 on the right. 2. Hyperlipidemia. 3. Type II diabetes. 4. She has history of hyperthyroidism for which she underwent treatment with radioactive iodine ablation. 5. She has been followed for thyroid nodules. 6. She has mild psoriasis. 7. She has history of alopecia. 8. B12 deficiency. 9. Anxiety/depression. Problems Addressed with this Encounter and Plan: Jamar 1 invasive ductal carcinoma of the left breast, stage IA (T1c, N0, M0), ER/MD positive and HER-2/gregorio negative. The tumor was low risk by Oncotype DX, recurrence score 2. She also had bilateral ductal carcinoma in situ, grade 3 on the left and grade 2 on the right. She underwent left total mastectomy with axillary sentinel lymph node biopsy and right total mastectomy on 04/14/2016. With low risk Oncotype, adjuvant chemotherapy was not recommended. She began adjuvant hormonal therapy with anastrozole 1 mg daily in May 2016. Her laboratory studies were consistent with menopausal status. As of May 2017 the anastrozole was put on hold due to worsening musculoskeletal pain. Her symptoms subsequently improved, and she then began further hormonal therapy with letrozole 2.5 mg daily on 11/26/2017. It was stopped within a few weeks because of musculoskeletal pain. In January 2018 she began further adjuvant hormonal therapy with exemestane 25 mg daily. During subsequent follow-up the exemestane was put on hold a couple of different times due to increased joint pain, but just temporarily. Overall, she was able to continue it with acceptable toxicity. At this point she appears to be doing well clinically other than she has had ongoing problems with the right shoulder following an injury last September. She appears to be tolerating the exemestane without significant toxicity, and thus far there has been no evidence of recurrence of the breast cancer. She continues adjuvant hormonal therapy with exemestane 25 mg daily. She will be scheduled for a follow-up visit in 6 months. At that point she will have completed she will have completed 5 years of adjuvant hormonal therapy, and we will need to determine whether to stop treatment or consider extended hormonal therapy. Signed By: Kwasi Torres M.D. <<Signature on File>>
== END 2021-06-02 14:50 | disposition home or self-care (01) ==
LOC: ONCMED 14:52
PROVIDERS: PCP Nurse Practitioner Family; Visit Provider Internal Medicine Medical Oncology
DX: C50.812 Malignant neoplasm of overlapping sites of left female breast (principal); Z17.0 Estrogen receptor positive status [ER+]; E78.5 Hyperlipidemia, unspecified; E11.9 Type 2 diabetes mellitus without complications; E05.90 Thyrotoxicosis, unspecified without thyrotoxic crisis or storm; E04.2 Nontoxic multinodular goiter; L40.9 Psoriasis, unspecified; D51.9 Vitamin B12 deficiency anemia, unspecified; F41.9 Anxiety disorder, unspecified; F32.9 Major depressive disorder, single episode, unspecified; Z87.2 Personal history of diseases of the skin and subcutaneous tissue; Z79.4 Long term (current) use of insulin; Z79.818 Long term (current) use of other agents affecting estrogen receptors and estrogen levels; Z79.899 Other long term (current) drug therapy; Z90.13 Acquired absence of bilateral breasts and nipples
CPT/HCPCS: 99214

== ENCOUNTER 2021-07-02 10:15 | Outpatient (CLI) | payer BC, SELFPAY ==
[2021-07-02 10:25] VITALS: BP 147/58; PULSE 91; RESP 18; TEMP 36.4; O2SAT 98
[2021-07-02 10:43] VITALS: BMI 35.2
[2021-07-02 10:59] VITALS: BP 125/85; PULSE 94; RESP 18; TEMP 36.7; O2SAT 97
[2021-07-02 11:54] VITALS: BP 134/84; PULSE 86; RESP 17; TEMP 36.7; O2SAT 97
[2021-07-02 12:05] VITALS: BP 134/84; PULSE 86; RESP 17; TEMP 36.7; O2SAT 97
== END 2021-07-02 10:16 | disposition home or self-care (01) ==
LOC: OPS 10:22
PROVIDERS: PCP Nurse Practitioner Family; Visit Provider Nurse Practitioner Family
DX: U07.1 COVID-19 (principal)
CPT/HCPCS: 96365

== ENCOUNTER → 2021-10-02 08:40 | Outpatient (BNVA) | payer BC, SELFPAY | PROVIDERS: PCP Nurse Practitioner Family; Visit Provider Internal Medicine Endocrinology, Diabetes & Metabolism | DX: E04.2 Nontoxic multinodular goiter (principal); E11.65 Type 2 diabetes mellitus with hyperglycemia; R53.81 Other malaise; E55.9 Vitamin D deficiency, unspecified | CPT/HCPCS: 80053; 80061; 82043; 82306; 83036; 83721; 83735; 84439; 84443; 85025 ==

== ENCOUNTER 2022-01-05 12:53 | Oncology outpatient (recurring) (ONCR) | payer BC, SELFPAY | END 2022-01-18 23:59 | disposition home or self-care (01) | PROVIDERS: PCP Nurse Practitioner Family; Visit Provider Internal Medicine Medical Oncology | DX: Z53.9 Procedure and treatment not carried out, unspecified reason (principal) ==